=== PATIENT | male | born 1960 | race Caucasian/White ===

== ENCOUNTER 2020-11-14 03:57 | Inpatient (IN) | payer BC ==
[~2020-11-14] VITALS: Ht 190.5 cm; Wt 78.0 kg
--- NOTE | 2020-11-14 04:28 | NUR ---
PATIENT FROM [facility]. SPOUSE AND PATIENT ARE HISTORIANS. PATIENT REPORTS HE HAS A HISTORY OF COLON CANCER AND HAS BEEN GETTING "INFUSIONS" EVERY TWO WEEKS HERE. PATIENT UNABLE TO STATE WHAT THE INFUSIONS ARE. STATES THE PATIENT HAS BEEN DOING WELL WITH THE INFUSIONS UNTIL RECENTLY. TODAY HE HAS NOT BEEN ABLE TO URINATE. HE RECIEVED 2L OF FLUIDS AT [facility] WITH NO URINE PRODUCED AND NONE VISIBLE ON A BLADDER SCAN. [facility] HAD THE PATIENT COME HERE D/T UNABLE TO URINATE.
[2020-11-14] MEDS ORDERED: SODIUM CHLORIDE 0.9% 1,000 ML IV ONE (05:30)
[2020-11-14] MEDS ORDERED: SODIUM CHLORIDE FLUSH 10ML SYR IVF ONE (05:30)
[2020-11-14 05:45] LABS: BASOPHILS % (AUTO) 0 % (0-1); EOSINOPHILS % (AUTO) 0 % (1-7); LYMPHOCYTES % (AUTO) 5 % (22-44); MEAN CORPUSCULAR HEMOGLOBIN 24.2 pg (27.5-34.5); MEAN CORPUSCULAR HGB CONC 32.7 g/dL (33.2-36.2); MEAN PLATELET VOLUME 7.4 fL (7.4-10.4); MONOCYTES % (AUTO) 8 % (2-9); NEUTROPHILS % (AUTO) 86 % (42-75); PLATELET COUNT 281 x10^3/uL (130-400); RED BLOOD COUNT 4.32 x10^6/uL (4.38-5.82); RED CELL DISTRIBUTION WIDTH 19.2 % (9.4-14.8)
[2020-11-14] MEDS ORDERED: PLEASE ENTER ALLERGIES MC SCH (06:00)
[2020-11-14 06:07] LABS: ALBUMIN 2.5 g/dL (3.4-5.0); ANION GAP 14 mmol/L (5-15); CALCIUM 8.1 mg/dL (8.5-10.1); CHLORIDE 101 mmol/L (98-107)
[2020-11-14 06:14] LABS: ALANINE AMINOTRANSFERASE 14 U/L (12-78); ALKALINE PHOSPHATASE 105 U/L (45-117); BILIRUBIN,TOTAL 0.6 mg/dL (0.2-1.0); CREATININE 7.82 mg/dL (0.7-1.3); TOTAL PROTEIN 6.9 g/dL (6.4-8.2); TROPONIN I < 0.015 ng/mL (0.000-0.045)
--- NOTE | 2020-11-14 06:54 | NUR ---
GAVE REPORT TO VERNA HAND
[2020-11-14] MEDS ORDERED: DOCU100C33 PO (07:22)
[2020-11-14] MEDS ORDERED: OLAN2.5T10 PO (07:22)
[2020-11-14] MEDS ORDERED: ENCO75CA PO (07:22)
[2020-11-14] MEDS ORDERED: PROC10TA2 PO (07:22)
[2020-11-14] MEDS ORDERED: TAMS-11 PO (07:22)
[2020-11-14] MEDS ORDERED: NALD0.2T3 PO (07:22)
[2020-11-14] MEDS ORDERED: ALBU0.63 NEB (07:22)
[2020-11-14] MEDS ORDERED: TRAZ-175 PO (07:22)
[2020-11-14] MEDS ORDERED: LOSA50TA14 PO (07:22)
[2020-11-14] MEDS ORDERED: TRAM100T39 PO (07:22)
[2020-11-14] MEDS ORDERED: PANT20TA4 PO (07:22)
[2020-11-14] MEDS ORDERED: HYDR4TAB PO (07:22)
[2020-11-14] MEDS ORDERED: CYCL10TA2 PO (07:22)
[2020-11-14] MEDS ORDERED: PRED5TAB PO (07:22)
--- NOTE | 2020-11-14 07:26 | NUR ---
PT IN BED IN GOWN WITH CONT TRAFFIC REPORTER, SPO2, BP Q 30 MIN, SIDE RAILS UP X2, CALL LIGHT IN REACH. WENT OVER PLAN OF CARE FROM ORDER LIST, AGREES TO PLAN. RECONCILE MEDS DONE. PT REQUESTING PAIN MED/NAUSEA MEDS FOR PAIN 8 RIGHT SIDE. MS NOTIFIED
[2020-11-14] MEDS ORDERED: ONDANSETRON 2MG/ML, 2ML ONE (07:30)
[2020-11-14] MEDS ORDERED: HYDROmorphone 2 MG/ML, 1ML IV ONE (07:30)
[2020-11-14] MEDS ORDERED: SODIUM CHLORIDE FLUSH 10ML SYR IVF PRN (07:30)
[2020-11-14] MEDS ORDERED: HYDROmorphone 2 MG/ML, 1ML ONE (07:30)
[2020-11-14] MEDS ORDERED: ONDANSETRON 2MG/ML, 2ML IVPush ONE (07:30)
--- NOTE | 2020-11-14 07:43 | NUR ---
US IN ROOM AT THIS TIME
[2020-11-14] MEDS ORDERED: POLYETHYLENE GLYCOL 17 GM PACKET PO PRN (11:30)
[2020-11-14] MEDS ORDERED: PROMETHAZINE 25 MG/ML, 1ML IM PRN (11:30)
[2020-11-14] MEDS ORDERED: OXYcodone IR 5MG TABLET PO PRN (11:30)
[2020-11-14] MEDS ORDERED: BISACODYL 10 MG SUPP PR PRN (11:30)
[2020-11-14] MEDS ORDERED: DOCUSATE 100 MG CAPSULE PO PRN (11:30)
[2020-11-14] MEDS ORDERED: ACETAMINOPHEN 325 MG TABLET PO PRN (11:30)
[2020-11-14] MEDS ORDERED: HYDROmorphone 2 MG/ML, 1ML IVPush PRN (11:30)
[2020-11-14] MEDS ORDERED: ONDANSETRON ODT 4 MG PO PRN (11:30)
[2020-11-14] MEDS: HYDROmorphone 2 MG/ML, 1ML IVPush PRN ×3 (11:42→13:21)
[2020-11-14 13:43] VITALS: BP 170/88
[2020-11-14] MEDS: hydrALAzine 20 MG/ML, 1ML IVPush PRN (13:49)
[2020-11-14] MEDS: ALBUTEROL/IPRATROPIUM 2.5MG/0.5MG, 3 ML NPPB SCH ×2 (14:18→20:15)
[2020-11-14] MEDS ORDERED: FENTANYL PF 100 MCG/2ML ONE (14:19)
[2020-11-14] MEDS ORDERED: FLUMAZENIL 0.1 MG/1 ML, 5ML ONE (14:19)
[2020-11-14] MEDS ORDERED: MIDAZOLAM 1 MG/ML, 5ML ONE ×2 (14:19)
[2020-11-14] MEDS ORDERED: CEFAZOLIN PMX 1GM/50ML 50 ML ONE (14:20)
[2020-11-14] MEDS ORDERED: NALOXONE 1 MG/ML, 2ML ONE (14:20)
[2020-11-14] MEDS ORDERED: LIDOCAINE 1%, 10ML ONE (14:34)
[2020-11-14] MEDS ORDERED: VISIPAQUE 270 MG/ML, 50ML BOTTLE ONE (14:55)
[2020-11-14 17:37] LABS: MICROSCOPIC INDICATED
[2020-11-14] MEDS: HYDROmorphone 2MG TABLET PO PRN ×2 (18:31→22:30)
[2020-11-14 19:06] VITALS: BP 174/93
[2020-11-14] MEDS: ONDANSETRON 2MG/ML, 2ML IVPush PRN (20:14)
[2020-11-14] MEDS: BUDESONIDE 0.5 MG/2 ML INHA NPPB SCH (20:15)
[2020-11-14] MEDS: DIPHENHYDRAMINE 50 MG/ML, 1ML IVPush PRN (21:52)
[2020-11-15 00:01] VITALS: BP 169/101
[2020-11-15 00:15] VITALS: BP 177/98
[2020-11-15] MEDS: hydrALAzine 20 MG/ML, 1ML IVPush PRN (00:19)
[2020-11-15] MEDS: ALBUTEROL/IPRATROPIUM 2.5MG/0.5MG, 3 ML NPPB SCH ×5 (01:38→19:50)
[2020-11-15 03:54] VITALS: BP 173/100
[2020-11-15 06:04] LABS: BASOPHILS % (AUTO) 1 % (0-1); EOSINOPHILS % (AUTO) 0 % (1-7); LYMPHOCYTES % (AUTO) 3 % (22-44); MEAN CORPUSCULAR HEMOGLOBIN 24.2 pg (27.5-34.5); MEAN PLATELET VOLUME 7.5 fL (7.4-10.4); MONOCYTES % (AUTO) 6 % (2-9); NEUTROPHILS % (AUTO) 90 % (42-75); PLATELET COUNT 407 x10^3/uL (130-400); RED BLOOD COUNT 4.97 x10^6/uL (4.38-5.82); RED CELL DISTRIBUTION WIDTH 19.6 % (9.4-14.8)
[2020-11-15 06:10] LABS: ANION GAP 12 mmol/L (5-15); CALCIUM 8.5 mg/dL (8.5-10.1); CHLORIDE 107 mmol/L (98-107)
[2020-11-15 06:20] LABS: ALANINE AMINOTRANSFERASE 16 U/L (12-78); ALKALINE PHOSPHATASE 166 U/L (45-117); BILIRUBIN,TOTAL 0.6 mg/dL (0.2-1.0); CHOL/HDL RATIO 5.2; CHOLESTEROL, TOTAL 172 mg/dL (140-239); CREATININE 6.56 mg/dL (0.7-1.3); HDL CHOL % 19 % (26-37); HDL CHOLESTEROL (DIRECT) 33 mg/dL (40-60); LDL CHOLESTEROL,CALCULATED 119 mg/dL (54-169); LDL/HDL RATIO 3.6 (0.5-3.0); TOTAL PROTEIN 7.9 g/dL (6.4-8.2); TRIGLYCERIDES 99 mg/dL (50-200); VLDL CHOLESTEROL 20 mg/dL (0-25)
[2020-11-15 07:54] VITALS: BP 165/96
[2020-11-15] MEDS: BUDESONIDE 0.5 MG/2 ML INHA NPPB SCH ×2 (08:12→19:50)
[2020-11-15] MEDS: HYDROmorphone 2MG TABLET PO PRN ×3 (09:02→19:44)
[2020-11-15] MEDS: TAMSULOSIN 0.4 MG CAP.ER.24H PO SCH (09:03)
[2020-11-15] MEDS: PANTOPRAZOLE 20MG TABLET PO SCH (09:03)
[2020-11-15] MEDS: OLANZAPINE 2.5 MG TABLET PO SCH (09:03)
[2020-11-15] MEDS: HEPARIN 5,000 UNITS/ML, 1ML SQ SCH ×2 (13:06→20:33)
[2020-11-15 13:12] VITALS: BP 166/100
[2020-11-15 18:28] VITALS: BP 146/98
[2020-11-15] MEDS: ONDANSETRON 2MG/ML, 2ML IVPush PRN (19:44)
[2020-11-16] MEDS: DIPHENHYDRAMINE 50 MG/ML, 1ML IVPush PRN ×4 (00:48→22:10)
[2020-11-16] MEDS: HYDROmorphone 2MG TABLET PO PRN ×6 (00:49→22:11)
[2020-11-16 01:32] VITALS: BP 160/92
[2020-11-16] MEDS: ONDANSETRON 2MG/ML, 2ML IVPush PRN ×3 (04:02→18:39)
[2020-11-16] MEDS: HEPARIN 5,000 UNITS/ML, 1ML SQ SCH ×3 (05:19→20:30)
[2020-11-16 05:36] LABS: BASOPHILS % (AUTO) 0 % (0-1); EOSINOPHILS % (AUTO) 1 % (1-7); LYMPHOCYTES % (AUTO) 7 % (22-44); MEAN CORPUSCULAR HEMOGLOBIN 24.1 pg (27.5-34.5); MEAN CORPUSCULAR HGB CONC 32.9 g/dL (33.2-36.2); MEAN PLATELET VOLUME 7.4 fL (7.4-10.4); MONOCYTES % (AUTO) 10 % (2-9); NEUTROPHILS % (AUTO) 82 % (42-75); PLATELET COUNT 307 x10^3/uL (130-400); RED BLOOD COUNT 4.36 x10^6/uL (4.38-5.82)
[2020-11-16 05:45] LABS: ANION GAP 6 mmol/L (5-15); CALCIUM 8.8 mg/dL (8.5-10.1); CHLORIDE 108 mmol/L (98-107); CREATININE 3.41 mg/dL (0.7-1.3)
[2020-11-16] MEDS: ALBUTEROL/IPRATROPIUM 2.5MG/0.5MG, 3 ML NPPB SCH ×5 (05:50→20:13)
[2020-11-16] MEDS: BUDESONIDE 0.5 MG/2 ML INHA NPPB SCH ×2 (05:50→20:13)
[2020-11-16 06:20] VITALS: BP_SYST 106; BP_SYST 160; BP_DIAS 107
[2020-11-16] MEDS: hydrALAzine 20 MG/ML, 1ML IVPush PRN (06:35)
[2020-11-16] MEDS: OLANZAPINE 2.5 MG TABLET PO SCH (09:10)
[2020-11-16] MEDS: PANTOPRAZOLE 20MG TABLET PO SCH (09:11)
[2020-11-16] MEDS: TAMSULOSIN 0.4 MG CAP.ER.24H PO SCH (09:11)
[2020-11-16] MEDS ORDERED: MAGNESIUM SULFATE PMX 4GM/100M 100 ML IVPB ONE (10:00)
[2020-11-16 12:39] VITALS: BP 152/102
[2020-11-16 19:05] VITALS: BP 146/90
[2020-11-16] MEDS: CEFTRIAXONE 1,000 MG in DEXTROSE 5% 50 ML IVPB SCH (23:39)
[2020-11-17 00:16] VITALS: BP 139/80
[2020-11-17] MEDS: DIPHENHYDRAMINE 50 MG/ML, 1ML IVPush PRN ×3 (04:29→20:45)
[2020-11-17] MEDS: HEPARIN 5,000 UNITS/ML, 1ML SQ SCH ×3 (04:30→20:03)
[2020-11-17] MEDS: ALBUTEROL/IPRATROPIUM 2.5MG/0.5MG, 3 ML NPPB SCH ×5 (04:32→19:05)
[2020-11-17 04:59] LABS: BASOPHILS % (AUTO) 1 % (0-1); EOSINOPHILS % (AUTO) 1 % (1-7); LYMPHOCYTES % (AUTO) 5 % (22-44); MEAN CORPUSCULAR HEMOGLOBIN 24.1 pg (27.5-34.5); MEAN CORPUSCULAR HGB CONC 32.8 g/dL (33.2-36.2); MEAN PLATELET VOLUME 7.6 fL (7.4-10.4); MONOCYTES % (AUTO) 12 % (2-9); NEUTROPHILS % (AUTO) 81 % (42-75); PLATELET COUNT 316 x10^3/uL (130-400); RED BLOOD COUNT 4.28 x10^6/uL (4.38-5.82); RED CELL DISTRIBUTION WIDTH 19.4 % (9.4-14.8)
[2020-11-17 05:06] LABS: CHLORIDE 103 mmol/L (98-107)
[2020-11-17 05:18] LABS: ANION GAP 8 mmol/L (5-15); CALCIUM 8.5 mg/dL (8.5-10.1); CREATININE 2.77 mg/dL (0.7-1.3)
[2020-11-17] MEDS: HYDROmorphone 2MG TABLET PO PRN ×4 (06:41→23:40)
[2020-11-17] MEDS: BUDESONIDE 0.5 MG/2 ML INHA NPPB SCH ×2 (06:50→19:05)
[2020-11-17 07:32] VITALS: BP 131/84
[2020-11-17] MEDS: PANTOPRAZOLE 20MG TABLET PO SCH (09:32)
[2020-11-17] MEDS: TAMSULOSIN 0.4 MG CAP.ER.24H PO SCH (09:32)
[2020-11-17] MEDS: OLANZAPINE 2.5 MG TABLET PO SCH (09:32)
[2020-11-17 16:13] VITALS: BP 103/68
[2020-11-17] MEDS: ONDANSETRON 2MG/ML, 2ML IVPush PRN (17:39)
[2020-11-17 18:36] VITALS: BP 107/71
[2020-11-17] MEDS: CEFTRIAXONE 1,000 MG in DEXTROSE 5% 50 ML IVPB SCH (22:11)
[2020-11-18 00:06] VITALS: BP 138/82
[2020-11-18] MEDS: DIPHENHYDRAMINE 50 MG/ML, 1ML IVPush PRN ×2 (03:28→12:48)
[2020-11-18] MEDS: ALBUTEROL/IPRATROPIUM 2.5MG/0.5MG, 3 ML NPPB SCH ×4 (04:25→15:00)
[2020-11-18] MEDS: HEPARIN 5,000 UNITS/ML, 1ML SQ SCH ×2 (04:30→12:39)
[2020-11-18 04:54] LABS: BASOPHILS % (AUTO) 0 % (0-1); EOSINOPHILS % (AUTO) 1 % (1-7); LYMPHOCYTES % (AUTO) 7 % (22-44); MEAN CORPUSCULAR HEMOGLOBIN 23.8 pg (27.5-34.5); MEAN CORPUSCULAR HGB CONC 32.1 g/dL (33.2-36.2); MEAN PLATELET VOLUME 7.7 fL (7.4-10.4); MONOCYTES % (AUTO) 12 % (2-9); NEUTROPHILS % (AUTO) 80 % (42-75); PLATELET COUNT 324 x10^3/uL (130-400); RED BLOOD COUNT 4.19 x10^6/uL (4.38-5.82); RED CELL DISTRIBUTION WIDTH 19.9 % (9.4-14.8)
[2020-11-18 04:58] LABS: ANION GAP 7 mmol/L (5-15); CALCIUM 8.3 mg/dL (8.5-10.1); CHLORIDE 102 mmol/L (98-107); CREATININE 2.29 mg/dL (0.7-1.3)
[2020-11-18 05:08] LABS: INTERNATIONAL NORMALIZED RATIO 1.31 (0.93-1.1); PROTHROMBIN TIME 13.8 Seconds (9.6-11.5)
[2020-11-18] MEDS: ONDANSETRON 2MG/ML, 2ML IVPush PRN ×2 (06:10)
[2020-11-18] MEDS: HYDROmorphone 2MG TABLET PO PRN ×3 (06:10→16:34)
[2020-11-18 07:14] VITALS: BP 127/82
[2020-11-18] MEDS: BUDESONIDE 0.5 MG/2 ML INHA NPPB SCH (09:00)
[2020-11-18] MEDS ORDERED: MAGNESIUM SULFATE PMX 2GM/50ML 50 ML IV ONE (09:30)
[2020-11-18] MEDS: OLANZAPINE 2.5 MG TABLET PO SCH (10:04)
[2020-11-18] MEDS: TAMSULOSIN 0.4 MG CAP.ER.24H PO SCH (10:04)
[2020-11-18] MEDS: PANTOPRAZOLE 20MG TABLET PO SCH (10:04)
[2020-11-18] MEDS ORDERED: MIDAZOLAM 1 MG/ML, 5ML ONE (10:48)
[2020-11-18] MEDS ORDERED: FENTANYL PF 100 MCG/2ML ONE ×2 (10:48)
[2020-11-18] MEDS ORDERED: LIDOCAINE 1%, 10ML ONE (11:14)
[2020-11-18 13:50] VITALS: BP 128/77
== END 2020-11-18 16:57 | disposition home or self-care (01) | DRG 683 ==
LOC: ED 06:31 → 4NE 07:54 → ED 08:58 → 4NW 11-16 05:40
PROVIDERS: ADMIT Internal Medicine; ATTEND Internal Medicine
PROC: 0T903ZZ Drainage of Right Kidney, Percutaneous Approach (ICD-10-PCS; 2020-11-14)
PROC: 0T767DZ Dilation of Right Ureter with Intraluminal Device, Via Natural or Artificial Opening (ICD-10-PCS; principal; 2020-11-18)
DX: N17.9 Acute kidney failure, unspecified (principal); N13.4 Hydroureter; E87.2 Acidosis; J98.11 Atelectasis; C18.9 Malignant neoplasm of colon, unspecified; N13.1 Hydronephrosis with ureteral stricture, not elsewhere classified; N26.1 Atrophy of kidney (terminal); N40.0 Benign prostatic hyperplasia without lower urinary tract symptoms; K82.8 Other specified diseases of gallbladder; J44.9 Chronic obstructive pulmonary disease, unspecified; G89.29 Other chronic pain; D64.9 Anemia, unspecified; F12.90 Cannabis use, unspecified, uncomplicated; I10 Essential (primary) hypertension; Z90.49 Acquired absence of other specified parts of digestive tract; Z87.891 Personal history of nicotine dependence; Z85.038 Personal history of other malignant neoplasm of large intestine
CPT/HCPCS: 36415; 50432; 50434; 87106; 96374; 96375; 96376; 99285; J3490; J7626; 74176; 76770; 80048; 80053; 80061; 81001; 83036; 83605; 83735; 83880; 84100; 84443; 84484; 85025; 85610; 87040; 87086; 87635; 93005; 94640; 99156; 99157; C1894; G0378; J0690; J0696; J1170; J1644; J2250; J2405; J2550; J3010; Q9966; C1729; C1751; C1769; C2625; J0360; J1200; J2310; J3475; J7030; J7512